=== PATIENT | male | born 1985 | race Caucasian/White ===

== ENCOUNTER 2021-08-06 09:09 | Emergency (ER) | payer MEDICARE, MEDICAID ==
[~2021-08-06] VITALS: Ht 172.7 cm; Wt 68.7 kg
[2021-08-06] MEDS ORDERED: OXYB10TA23 PO (09:35)
[2021-08-06] MEDS ORDERED: RISP2TAB32 PO (09:35)
[2021-08-06] MEDS ORDERED: ONDA-83 PO (09:35)
[2021-08-06] MEDS ORDERED: NS 1,000 ML IV ONE (10:25)
[2021-08-06] MEDS ORDERED: METOCLOPRAMIDE INJ 10MG/2ML VIAL (J2765 PER 1) IV ONE (10:25)
[2021-08-06 11:09] LABS: BASO % 0.2 % (0.0-1.0); HEMATOCRIT 40.3 % (42.0-52.0); HEMOGLOBIN 13.8 g/dl (13.5-17.5); LYMPH # 1.6 10^3/uL (1.5-5.0); LYMPH % 15.8 % (24.0-44.0); MEAN CORPUSCULAR HEMOGLOBIN 29.3 pg (27.0-33.0); MEAN CORPUSCULAR HGB CONC 34.2 g/dl (32.0-36.5); MEAN CORPUSCULAR VOLUME 85.6 fl (80.0-96.0); MONO # 0.9 10^3/uL (0.0-0.8); MONO % 9.4 % (2.0-8.0); NEUTROPHILS # 7.4 10^3/uL (1.5-8.5); NEUTROPHILS % 74.3 % (36.0-66.0); PLATELET COUNT, AUTOMATED 305 10^3/uL (150-450); RED BLOOD COUNT 4.71 10^6/uL (4.30-6.10)
[2021-08-06 11:42] LABS: ALBUMIN 4.4 GM/DL (3.2-5.2); ALT/SGPT 27 U/L (12-78); BILIRUBIN,DIRECT 0.2 MG/DL (0.0-0.2); BILIRUBIN,TOTAL 1.2 MG/DL (0.2-1.0); BLOOD UREA NITROGEN 21 MG/DL (7-18); CARBON DIOXIDE LEVEL 27 MEQ/L (21-32); CHLORIDE LEVEL 100 MEQ/L (98-107); CREATININE FOR GFR 1.15 MG/DL (0.70-1.30); GLOMERULAR FILTRATION RATE > 60.0 (>60); GLUCOSE, FASTING 101 MG/DL (70-100); LIPASE 70 U/L (73-393); SODIUM LEVEL 137 MEQ/L (136-145); TOTAL PROTEIN 8.1 GM/DL (6.4-8.2)
[2021-08-06] MEDS ORDERED: PROM25TA12 PO ×2 (11:56→11:59)
[2021-08-06] MEDS ORDERED: POTASSIUM CHLORIDE 10% LIQ 20 MEQ/15 ML UDC PO ONE (12:10)
[2021-08-06 12:14] VITALS: BP 139/91
== END 2021-08-06 12:49 | disposition home or self-care (01) ==
LOC: M ED 09:09
DX: R11.2 Nausea with vomiting, unspecified (principal); E87.5 Hyperkalemia; Z88.0 Allergy status to penicillin; Z79.899 Other long term (current) drug therapy
CPT/HCPCS: 74021; 80048; 80076; 83690; 85025; 96361; 96374; 99284; J2765

== ENCOUNTER 2021-11-03 09:11 | Emergency (ER) | payer MEDICARE, MEDICAID ==
[~2021-11-03] VITALS: Ht 172.7 cm; Wt 70.1 kg
[~2021-11-03 09:11] MED LIST: ONDA-83 PO; OXYB10TA23 PO; PROM25TA12 PO; RISP2TAB32 PO
[2021-11-03] MEDS ORDERED: NS 1,000 ML IV ONE (12:55)
[2021-11-03] MEDS ORDERED: ONDANSETRON 4MG 2ML VIAL IV ONE (12:55)
[2021-11-03 13:27] LABS: BASO % 0.1 % (0.0-1.0); HEMATOCRIT 39.6 % (42.0-52.0); HEMOGLOBIN 13.2 g/dl (13.5-17.5); LYMPH # 0.8 10^3/uL (1.5-5.0); LYMPH % 8.1 % (24.0-44.0); MEAN CORPUSCULAR HEMOGLOBIN 29.1 pg (27.0-33.0); MEAN CORPUSCULAR HGB CONC 33.3 g/dl (32.0-36.5); MEAN CORPUSCULAR VOLUME 87.4 fl (80.0-96.0); MONO # 0.5 10^3/uL (0.0-0.8); MONO % 5.3 % (2.0-8.0); NEUTROPHILS % 85.9 % (36.0-66.0); PLATELET COUNT, AUTOMATED 272 10^3/uL (150-450); RED BLOOD COUNT 4.53 10^6/uL (4.30-6.10); WHITE BLOOD COUNT 9.3 10^3/uL (4.0-10.0)
[2021-11-03 14:22] LABS: ALBUMIN 4.1 GM/DL (3.2-5.2); BILIRUBIN,DIRECT 0.1 MG/DL (0.0-0.2); BILIRUBIN,TOTAL 0.5 MG/DL (0.2-1.0); TOTAL PROTEIN 7.7 GM/DL (6.4-8.2)
[2021-11-03 14:32] VITALS: BP 137/77
[2021-11-03] MEDS ORDERED: HALOPERIDOL 5MG/ML VIAL (J1630 PER 1) IV ONE (15:05)
[2021-11-03] MEDS ORDERED: GI COCKTAIL 50ML BTL(HYOSCYAMINE/MAALOX/LIDOCAINE VISCOUS)(1:3:1) PO ONE (15:30)
[2021-11-03] MEDS ORDERED: SUCRALFATE 1 GM TAB PO ONE (15:30)
[2021-11-03] MEDS ORDERED: PANTOPRAZOLE 40MG VIAL IV ONE (15:30)
[2021-11-03] MEDS ORDERED: ONDA4TAB6 PO ×2 (17:22→17:36)
[2021-11-03] MEDS ORDERED: CAPS0.022 TOP ×2 (17:22→17:36)
[2021-11-03] MEDS ORDERED: CARA1TAB6 PO ×2 (17:22→17:36)
[2021-11-03] MEDS ORDERED: OMEP40CA4 PO ×2 (17:22→17:36)
== END 2021-11-03 17:41 | disposition home or self-care (01) ==
LOC: EDBD 09:11 → M ED 09:11
DX: R11.2 Nausea with vomiting, unspecified (principal); Z79.899 Other long term (current) drug therapy; Z88.0 Allergy status to penicillin
CPT/HCPCS: 74021; 80047; 80076; 83690; 85025; 96361; 96374; 96375; 99284; C9113; J1630; J2405

== ENCOUNTER → 2025-03-17 | Outpatient (REF) | payer MEDICARE, MEDICAID ==
[~2025-03-17] MED LIST changes: +CAPS0.022 TOP; +CARA1TAB6 PO; +OMEP40CA4 PO; +ONDA-282 PO
== END ==
LOC: M LAB REF 17:12
PROVIDERS: ATTEND Otolaryngology
DX: H65.22 Chronic serous otitis media, left ear (principal)